=== PATIENT | female | born 1935 | race Caucasian/White ===

== ENCOUNTER 2018-05-21 14:43 | Day surgery (SDC) | payer MEDICARE ==
[~2018-05-21] VITALS: Ht 154.9 cm; Wt 56.9 kg
[~2018-05-21 14:43] MED LIST: METF10002 PO
[2018-05-21] MEDS ORDERED: LACTATED RINGERS 1,000 ML IV SCH (15:02)
[2018-05-21] MEDS ORDERED: METF500T17 PO (15:26)
[2018-05-21 15:27] VITALS: BP 199/81
[2018-05-21] MEDS ORDERED: SCOPOLAMINE PATCH, 1.5MG PATCH.TD72 TD ONE (15:30)
[2018-05-21] MEDS ORDERED: GABAPENTIN 300 MG CAPSULE PO ONE (15:30)
[2018-05-21] MEDS ORDERED: ACETAMINOPHEN 500 MG TABLET PO ONE (15:30)
[2018-05-21] MEDS ORDERED: PLEASE ENTER HEIGHT AND WEIGHT MC SCH (15:30)
[2018-05-21] MEDS ORDERED: MIDAZOLAM 1 MG/ML, 2ML ONE (15:34)
[2018-05-21] MEDS ORDERED: FENTANYL PF 100 MCG/2ML ONE ×2 (15:34→17:24)
[2018-05-21 16:05] LABS: BASOPHILS # (AUTO) 0.05 x10^3/uL (0-0.1); BASOPHILS % (AUTO) 1 % (0-1); EOSINOPHILS # (AUTO) 0.15 x10^3/uL (0-0.4); EOSINOPHILS % (AUTO) 2 % (1-7); LYMPHOCYTES # (AUTO) 1.93 x10^3/uL (1-3.4); LYMPHOCYTES % (AUTO) 29 % (22-44); MD NO; MEAN CORPUSCULAR HEMOGLOBIN 30.8 pg (27.0-34.8); MEAN CORPUSCULAR HGB CONC 33.3 g/dL (32.4-35.8); MEAN CORPUSCULAR VOLUME 92.4 fL (80-100); MEAN PLATELET VOLUME 7.6 fL (7.4-10.4); MONOCYTES # (AUTO) 0.44 x10^3/uL (0.2-0.8); MONOCYTES % (AUTO) 7 % (2-9); NEUTROPHILS # (AUTO) 4.06 x10^3/uL (1.8-6.8); NEUTROPHILS % (AUTO) 61 % (42-75); PLATELET COUNT 254 x10^3/uL (130-400); RED CELL DISTRIBUTION WIDTH 13.8 % (9.6-15.2)
[2018-05-21 16:10] LABS: ALBUMIN 3.3 g/dL (3.4-5.0); ANION GAP 7 mmol/L (5-15); CALCIUM 10.3 mg/dL (8.5-10.1); CHLORIDE 107 mmol/L (98-107)
[2018-05-21 16:14] LABS: ALANINE AMINOTRANSFERASE 18 U/L (12-78); ALKALINE PHOSPHATASE 95 U/L (45-117); BILIRUBIN,TOTAL 0.3 mg/dL (0.2-1.0); CREATININE 1.19 mg/dL (0.55-1.02); TOTAL PROTEIN 7.5 g/dL (6.4-8.2)
[2018-05-21] MEDS ORDERED: PROPOFOL 10 MG/ML, 20ML ONE (16:31)
[2018-05-21] MEDS ORDERED: LIDOCAINE 1%-EPI 1:100K, 30ML ONE (16:52)
[2018-05-21] MEDS ORDERED: ONDANSETRON 2MG/ML, 2ML IV PRN (17:00)
[2018-05-21] MEDS ORDERED: FENTANYL PF 100 MCG/2ML IV PRN (17:00)
[2018-05-21] MEDS ORDERED: hydrALAzine 20 MG/ML, 1ML IV PRN (17:00)
[2018-05-21] MEDS ORDERED: OXYcodone 5 MG/5 ML ORAL.SOL UDC PO PRN (17:00)
[2018-05-21] MEDS ORDERED: HYDROmorphone 1 MG/ML, 1ML IV PRN (17:00)
[2018-05-21] MEDS ORDERED: LABETALOL 5MG/ML, 20ML IV PRN (17:00)
[2018-05-21] MEDS ORDERED: ONDANSETRON ODT 8 MG PO PRN (17:00)
[2018-05-21] MEDS ORDERED: PROMETHAZINE 12.5 MG SUPP PR PRN (17:00)
[2018-05-21] MEDS ORDERED: OXYcodone 5 MG/5 ML ORAL.SOL UDC ONE (17:24)
== END 2018-05-21 23:30 | disposition home or self-care (01) ==
LOC: OR 14:43 → 4NOR 18:23 → OR 23:30
PROVIDERS: ATTEND Specialist
DX: C51.9 Malignant neoplasm of vulva, unspecified (principal); Z98.890 Other specified postprocedural states; Z79.899 Other long term (current) drug therapy; Z86.73 Personal history of transient ischemic attack (TIA), and cerebral infarction without residual deficits; I10 Essential (primary) hypertension; E11.9 Type 2 diabetes mellitus without complications; E78.5 Hyperlipidemia, unspecified; Z90.710 Acquired absence of both cervix and uterus
CPT/HCPCS: 36415; 56605; 71045; 80053; 85025; 88305; 93005; J2250; J2704; J3010; J3490; G0378

== ENCOUNTER → 2018-06-11 | Outpatient (CLI) | payer MEDICARE ==
[~2018-06-11] MED LIST changes: +METF500T17 PO
== END | disposition home or self-care (01) ==
LOC: ROC 07:59
PROVIDERS: ATTEND Radiology Radiation Oncology
DX: Z08 Encounter for follow-up examination after completed treatment for malignant neoplasm (principal); C51.9 Malignant neoplasm of vulva, unspecified; E11.9 Type 2 diabetes mellitus without complications; E78.00 Pure hypercholesterolemia, unspecified; I10 Essential (primary) hypertension; Z86.73 Personal history of transient ischemic attack (TIA), and cerebral infarction without residual deficits; Z90.710 Acquired absence of both cervix and uterus
CPT/HCPCS: 99214; G0463

== ENCOUNTER → 2018-06-20 | Outpatient (CLI) | payer MEDICARE ==
[~2018-06-20] MED LIST changes: +GADOBUTROL 7.5 MMOL/7.5 ML VIAL ONE
== END | disposition home or self-care (01) ==
LOC: RAD 11:58
PROVIDERS: ATTEND Radiology Radiation Oncology
DX: C51.0 Malignant neoplasm of labium majus (principal); C51.9 Malignant neoplasm of vulva, unspecified; K57.30 Diverticulosis of large intestine without perforation or abscess without bleeding
CPT/HCPCS: 72197; A9585

== ENCOUNTER → 2018-07-25 | Outpatient (CLI) | payer MEDICARE ==
[~2018-07-25] MED LIST changes: -GADOBUTROL 7.5 MMOL/7.5 ML VIAL ONE
== END | disposition home or self-care (01) ==
LOC: CFH 10:34
PROVIDERS: ATTEND Radiology Radiation Oncology
DX: I63.9 Cerebral infarction, unspecified (principal); R41.82 Altered mental status, unspecified; C51.0 Malignant neoplasm of labium majus; E11.9 Type 2 diabetes mellitus without complications; I10 Essential (primary) hypertension
CPT/HCPCS: 70551; 82565

== ENCOUNTER 2018-07-26 11:28 | Inpatient (IN) | payer MEDICARE ==
[~2018-07-26] VITALS: Ht 154.9 cm; Wt 59.2 kg
[2018-07-26 15:41] LABS: BASOPHILS # (AUTO) 0.03 x10^3/uL (0-0.1); BASOPHILS % (AUTO) 1 % (0-1); EOSINOPHILS # (AUTO) 0.23 x10^3/uL (0-0.4); EOSINOPHILS % (AUTO) 4 % (1-7); LYMPHOCYTES # (AUTO) 0.47 x10^3/uL (1-3.4); LYMPHOCYTES % (AUTO) 9 % (22-44); MD NO; MEAN CORPUSCULAR HGB CONC 33.5 g/dL (32.4-35.8); MEAN CORPUSCULAR VOLUME 92.8 fL (80-100); MEAN PLATELET VOLUME 6.5 fL (7.4-10.4); MONOCYTES # (AUTO) 0.52 x10^3/uL (0.2-0.8); MONOCYTES % (AUTO) 10 % (2-9); NEUTROPHILS # (AUTO) 3.94 x10^3/uL (1.8-6.8); NEUTROPHILS % (AUTO) 76 % (42-75); PLATELET COUNT 254 x10^3/uL (130-400); RED BLOOD COUNT 3.75 x10^6/uL (3.82-5.3); RED CELL DISTRIBUTION WIDTH 14.3 % (9.6-15.2)
[2018-07-26 15:44] LABS: ALBUMIN 3.1 g/dL (3.4-5.0); ANION GAP 5 mmol/L (5-15); CALCIUM 10.1 mg/dL (8.5-10.1); CHLORIDE 103 mmol/L (98-107)
[2018-07-26 15:48] LABS: ALANINE AMINOTRANSFERASE 22 U/L (12-78); ALKALINE PHOSPHATASE 88 U/L (45-117); BILIRUBIN,TOTAL 0.3 mg/dL (0.2-1.0); CREATININE 1.25 mg/dL (0.55-1.02); TOTAL PROTEIN 7.3 g/dL (6.4-8.2)
[2018-07-26 16:35] VITALS: BP 162/71
[2018-07-26] MEDS ORDERED: DOCUSATE 50 MG/5 ML, 10ML UDC PO PRN (17:30)
[2018-07-26] MEDS ORDERED: GADOBUTROL 7.5 MMOL/7.5 ML PFS ONE (17:42)
[2018-07-26] MEDS ORDERED: DIPHENHYDRAMINE 50 MG/ML, 1ML IVPush PRN (18:00)
[2018-07-26] MEDS ORDERED: methylPREDNISolone SOD SUCC 125 MG/2 ML IVPush PRN (18:00)
[2018-07-26] MEDS ORDERED: ACETAMINOPHEN 325 MG TABLET PO ONE (18:00)
[2018-07-26] MEDS ORDERED: OMNIPAQUE 350 MG/ML, 100ML BOTTLE ONE (18:43)
[2018-07-26 19:28] VITALS: BP 153/65
[2018-07-26] MEDS ORDERED: DO NOT GIVE XX PRN (21:00)
[2018-07-26] MEDS ORDERED: HEPARIN wt. based STROKE protocol IV PRN (21:00)
[2018-07-26] MEDS ORDERED: HEPARIN 25,000 UNITS/500ML PMX 500 ML IV PRN (21:30)
[2018-07-26] MEDS: SODIUM CHLORIDE 0.9% 500 ML IV SCH (22:30)
[2018-07-26] MEDS: INSULIN LISPRO 100 UNITS/ML, PEN SQ-INSULIN SCH (22:48)
[2018-07-26] MEDS: ATORVASTATIN 80 MG TABLET PO SCH (22:48)
[2018-07-27 01:31] VITALS: BP 158/78
[2018-07-27 02:19] LABS: CULTURE INDICATED? YES; MICROSCOPIC INDICATED
[2018-07-27] MEDS ORDERED: PHENAZOPYRIDINE 200 MG TABLET ONE (02:20)
[2018-07-27] MEDS: PHENAZOPYRIDINE 100 MG TABLET PO PRN ×2 (02:21→21:04)
[2018-07-27] MEDS: SODIUM CHLORIDE 0.9% 500 ML IV SCH (05:27)
[2018-07-27 05:55] LABS: BASOPHILS # (AUTO) 0.02 x10^3/uL (0-0.1); BASOPHILS % (AUTO) 1 % (0-1); EOSINOPHILS # (AUTO) 0.25 x10^3/uL (0-0.4); EOSINOPHILS % (AUTO) 6 % (1-7); LYMPHOCYTES # (AUTO) 0.39 x10^3/uL (1-3.4); LYMPHOCYTES % (AUTO) 9 % (22-44); MD NO; MEAN CORPUSCULAR HEMOGLOBIN 30.9 pg (27.0-34.8); MEAN CORPUSCULAR HGB CONC 33.3 g/dL (32.4-35.8); MEAN CORPUSCULAR VOLUME 92.7 fL (80-100); MEAN PLATELET VOLUME 6.4 fL (7.4-10.4); MONOCYTES # (AUTO) 0.49 x10^3/uL (0.2-0.8); MONOCYTES % (AUTO) 11 % (2-9); NEUTROPHILS # (AUTO) 3.31 x10^3/uL (1.8-6.8); NEUTROPHILS % (AUTO) 74 % (42-75); PLATELET COUNT 221 x10^3/uL (130-400); RED BLOOD COUNT 3.69 x10^6/uL (3.82-5.3)
[2018-07-27 06:09] LABS: CHLORIDE 107 mmol/L (98-107)
[2018-07-27 06:17] LABS: ANION GAP 6 mmol/L (5-15); CALCIUM 9.4 mg/dL (8.5-10.1); CHOL/HDL RATIO 4.4; CHOLESTEROL, TOTAL 171 mg/dL (140-239); CREATININE 1.01 mg/dL (0.55-1.02); HDL CHOL % 23 % (28-40); HDL CHOLESTEROL (DIRECT) 39 mg/dL (40-60); LDL CHOLESTEROL,CALCULATED 105 mg/dL (54-169); LDL/HDL RATIO 2.7 (0.5-3.0); TRIGLYCERIDES 134 mg/dL (50-200); VLDL CHOLESTEROL 27 mg/dL (0-25)
[2018-07-27 08:30] VITALS: BP 149/72
[2018-07-27] MEDS ORDERED: ASPIRIN 81 MG TABLET CHEW PO/NG SCH (09:00)
[2018-07-27] MEDS: INSULIN LISPRO 100 UNITS/ML, PEN SQ-INSULIN SCH ×4 (09:23→21:03)
[2018-07-27] MEDS: HYDROcodone/APAP 5/325 TABLET PO PRN ×2 (09:23→19:59)
[2018-07-27] MEDS: CEFTRIAXONE PMX 1GM/50ML 50 ML IV SCH (12:57)
--- NOTE | 2018-07-27 13:47 | NUR ---
Continue with a regular diet with thin liquids. Patient was educated on recommended diet and swallow precautions and strategies and placed on an orange sheet and placed on patient's whiteboard. Addendum: 07/27/18 at 1357 by JAVON AVILES Amended: Links added.
[2018-07-27 14:08] VITALS: BP 139/71
[2018-07-27 16:25] VITALS: BP 153/66
[2018-07-27 19:10] VITALS: BP 169/70
[2018-07-27] MEDS: ATORVASTATIN 80 MG TABLET PO SCH (19:59)
[2018-07-28 01:29] VITALS: BP 138/72
[2018-07-28] MEDS: HYDROcodone/APAP 5/325 TABLET PO PRN ×4 (01:36→21:12)
[2018-07-28] MEDS: ASPIRIN 81 MG TABLET EC PO SCH (05:55)
[2018-07-28 08:12] VITALS: BP 125/70
[2018-07-28] MEDS: INSULIN LISPRO 100 UNITS/ML, PEN SQ-INSULIN SCH ×4 (08:44→21:12)
[2018-07-28] MEDS: CEFTRIAXONE PMX 1GM/50ML 50 ML IV SCH (12:20)
[2018-07-28] MEDS: PHENAZOPYRIDINE 100 MG TABLET PO PRN ×2 (12:40→21:12)
[2018-07-28 15:25] VITALS: BP 157/70
[2018-07-28 18:55] VITALS: BP 135/80
[2018-07-28] MEDS: ATORVASTATIN 80 MG TABLET PO SCH (21:12)
[2018-07-29] MEDS: HYDROcodone/APAP 5/325 TABLET PO PRN ×4 (01:18→13:41)
[2018-07-29 03:01] VITALS: BP 138/74
[2018-07-29] MEDS: ASPIRIN 81 MG TABLET EC PO SCH (05:53)
[2018-07-29 09:15] VITALS: BP 147/71
[2018-07-29] MEDS: PHENAZOPYRIDINE 100 MG TABLET PO PRN ×3 (09:30→21:40)
[2018-07-29 12:05] VITALS: BP 154/74
[2018-07-29] MEDS: INSULIN LISPRO 100 UNITS/ML, PEN SQ-INSULIN SCH ×3 (12:47→20:58)
[2018-07-29] MEDS: CEFTRIAXONE PMX 1GM/50ML 50 ML IV SCH (12:50)
[2018-07-29 20:32] VITALS: BP 148/71
[2018-07-29] MEDS: ATORVASTATIN 80 MG TABLET PO SCH (20:57)
[2018-07-30 01:29] VITALS: BP 150/74
[2018-07-30 04:52] VITALS: BP 163/85
[2018-07-30] MEDS: ASPIRIN 81 MG TABLET EC PO SCH (04:56)
[2018-07-30 08:54] VITALS: BP 147/82
[2018-07-30] MEDS: INSULIN LISPRO 100 UNITS/ML, PEN SQ-INSULIN SCH ×4 (09:14→21:27)
[2018-07-30] MEDS: HYDROcodone/APAP 5/325 TABLET PO PRN (09:37)
[2018-07-30] MEDS: PHENAZOPYRIDINE 100 MG TABLET PO PRN (09:37)
[2018-07-30] MEDS: CEFTRIAXONE PMX 1GM/50ML 50 ML IV SCH (12:12)
[2018-07-30] MEDS ORDERED: LIDOCAINE/MPF 2%-EPI 1:200K, 20 ML ONE (13:07)
[2018-07-30] MEDS ORDERED: PAPAVERINE 30 MG/ML, 2ML ONE (13:07)
[2018-07-30] MEDS ORDERED: MIDAZOLAM 1 MG/ML, 2ML ONE (13:07)
[2018-07-30] MEDS ORDERED: PROTAMINE SULFATE 10 MG/ML, 5ML ONE (13:07)
[2018-07-30] MEDS ORDERED: FENTANYL PF 250 MCG/5ML ONE (13:07)
[2018-07-30] MEDS ORDERED: HEPARIN 1,000 UNITS/ML, 30ML ONE (13:07)
[2018-07-30] MEDS ORDERED: THROMBIN 20,000 UNIT VIAL TP ONE (13:08)
[2018-07-30] MEDS ORDERED: BACITRACIN 50,000 UNIT ONE (13:08)
[2018-07-30] MEDS ORDERED: LIDOCAINE 1%-EPI 1:100K, 30ML ONE (13:09)
[2018-07-30] MEDS ORDERED: REMIFENTANIL 2 MG ONE (13:18)
[2018-07-30] MEDS ORDERED: GLYCOPYRROLATE 0.2MG/1ML, 5ML ONE (14:07)
[2018-07-30] MEDS ORDERED: hydrALAzine 20 MG/ML, 1ML ONE ×2 (14:07→15:48)
[2018-07-30] MEDS ORDERED: NEOSTIGMINE 1 MG/ML, 10ML ONE (14:07)
[2018-07-30] MEDS ORDERED: ONDANSETRON 2MG/ML, 2ML ONE (14:58)
[2018-07-30] MEDS ORDERED: CEFAZOLIN 1,000 MG ONE (14:58)
[2018-07-30] MEDS ORDERED: LIDOCAINE-MPF 2% ,5ML ONE (14:58)
[2018-07-30] MEDS ORDERED: PROPOFOL 10 MG/ML, 20ML ONE (14:58)
[2018-07-30] MEDS ORDERED: OXYcodone 5 MG/5 ML ORAL.SOL UDC PO PRN (15:00)
[2018-07-30] MEDS ORDERED: HALOPERIDOL 5 MG/ML IV PRN (15:00)
[2018-07-30] MEDS ORDERED: PROMETHAZINE 25 MG/ML, 1ML IV PRN (15:00)
[2018-07-30] MEDS ORDERED: ACETAMINOPHEN 325 MG TABLET PO PRN (15:00)
[2018-07-30] MEDS ORDERED: HYDROmorphone 2 MG/ML, 1ML IVPush PRN (15:00)
[2018-07-30] MEDS ORDERED: hydrALAzine 20 MG/ML, 1ML IV PRN (15:00)
[2018-07-30] MEDS: FENTANYL PF 100 MCG/2ML IV PRN ×4 (15:45→16:25)
[2018-07-30] MEDS ORDERED: FENTANYL PF 100 MCG/2ML ONE (15:46)
[2018-07-30] MEDS ORDERED: ACETAMINOPHEN 650 MG/20.3 ML UDC ONE (15:46)
[2018-07-30] MEDS ORDERED: OXYcodone 5 MG/5 ML ORAL.SOL UDC ONE (15:46)
[2018-07-30] MEDS ORDERED: MEPERIDINE/PF 25MG/ML,1ML ONE (15:56)
[2018-07-30] MEDS: MEPERIDINE/PF 25MG/0.5ML IVPush PRN ×2 (16:00→16:10)
[2018-07-30] MEDS ORDERED: HYDROmorphone 1 MG/ML, 1ML ONE (16:29)
[2018-07-30 17:46] VITALS: BP 116/62
[2018-07-30] MEDS ORDERED: morphine SULFATE 10 MG/ML, 1ML IV PRN (18:00)
[2018-07-30 19:07] VITALS: BP 106/64
[2018-07-30] MEDS: SODIUM CHLORIDE FLUSH 10ML SYR IVF SCH (19:55)
[2018-07-30] MEDS: POTASSIUM CHLORIDE 20 MEQ in LACTATED RINGERS 1,000 ML IV SCH (19:57)
[2018-07-30] MEDS: ATORVASTATIN 80 MG TABLET PO SCH (21:17)
[2018-07-30] MEDS: CEFAZOLIN PMX 1GM/50ML 50 ML IVPB SCH (22:29)
[2018-07-31 01:54] VITALS: BP 101/60
[2018-07-31 01:57] VITALS: BP 147/63
[2018-07-31] MEDS: HYDROcodone/APAP 5/325 TABLET PO PRN ×3 (02:05→14:20)
[2018-07-31] MEDS: PHENAZOPYRIDINE 100 MG TABLET PO PRN ×2 (02:05→10:25)
[2018-07-31 05:39] LABS: BASOPHILS # (AUTO) 0.01 x10^3/uL (0-0.1); BASOPHILS % (AUTO) 0 % (0-1); EOSINOPHILS # (AUTO) 0.19 x10^3/uL (0-0.4); EOSINOPHILS % (AUTO) 3 % (1-7); LYMPHOCYTES # (AUTO) 0.34 x10^3/uL (1-3.4); LYMPHOCYTES % (AUTO) 6 % (22-44); MD NO; MEAN CORPUSCULAR HEMOGLOBIN 31.4 pg (27.0-34.8); MEAN CORPUSCULAR HGB CONC 33.6 g/dL (32.4-35.8); MEAN CORPUSCULAR VOLUME 93.6 fL (80-100); MEAN PLATELET VOLUME 6.9 fL (7.4-10.4); MONOCYTES # (AUTO) 0.82 x10^3/uL (0.2-0.8); MONOCYTES % (AUTO) 14 % (2-9); NEUTROPHILS # (AUTO) 4.38 x10^3/uL (1.8-6.8); NEUTROPHILS % (AUTO) 76 % (42-75); PLATELET COUNT 188 x10^3/uL (130-400); RED BLOOD COUNT 3.25 x10^6/uL (3.82-5.3); RED CELL DISTRIBUTION WIDTH 14.9 % (9.6-15.2)
[2018-07-31] MEDS ORDERED: ENOXAPARIN 40 MG/0.4 ML SQ SCH (06:00)
[2018-07-31] MEDS: CEFAZOLIN PMX 1GM/50ML 50 ML IVPB SCH (06:17)
[2018-07-31] MEDS: ASPIRIN 81 MG TABLET EC PO SCH (06:17)
[2018-07-31] MEDS: POTASSIUM CHLORIDE 20 MEQ in LACTATED RINGERS 1,000 ML IV SCH (06:22)
[2018-07-31 06:25] VITALS: BP 144/64
[2018-07-31] MEDS: INSULIN LISPRO 100 UNITS/ML, PEN SQ-INSULIN SCH ×2 (07:00→13:29)
[2018-07-31 07:51] VITALS: BP 118/60
[2018-07-31] MEDS ORDERED: metFORMIN 500 MG TABLET PO SCH (08:00)
[2018-07-31] MEDS: SODIUM CHLORIDE FLUSH 10ML SYR IVF SCH (09:00)
[2018-07-31] MEDS ORDERED: ASPI81TA45 PO (11:08)
[2018-07-31] MEDS ORDERED: ATOR-2 PO (11:08)
[2018-07-31] MEDS ORDERED: CEFI400C PO (11:08)
[2018-07-31] MEDS: CEFTRIAXONE PMX 1GM/50ML 50 ML IV SCH (13:30)
== END 2018-07-31 15:00 | disposition home or self-care (01) | DRG 37 ==
LOC: 3NW 14:42 → 4WST 07-27 15:21 → DCLOUNGE 07-31 14:39
PROVIDERS: ADMIT Internal Medicine; ATTEND Internal Medicine
PROC: 03CH0ZZ Extirpation of Matter from Right Common Carotid Artery, Open Approach (ICD-10-PCS; 2018-07-30)
PROC: 03CK0ZZ Extirpation of Matter from Right Internal Carotid Artery, Open Approach (ICD-10-PCS; 2018-07-30)
PROC: 03CM0ZZ Extirpation of Matter from Right External Carotid Artery, Open Approach (ICD-10-PCS; principal; 2018-07-30 14:30)
DX: I65.23 Occlusion and stenosis of bilateral carotid arteries (principal); I63.9 Cerebral infarction, unspecified; E87.1 Hypo-osmolality and hyponatremia; N39.0 Urinary tract infection, site not specified; D68.69 Other thrombophilia; N17.9 Acute kidney failure, unspecified; D64.9 Anemia, unspecified; I12.9 Hypertensive chronic kidney disease with stage 1 through stage 4 chronic kidney disease, or unspecified chronic kidney disease; F03.90 Unspecified dementia, unspecified severity, without behavioral disturbance, psychotic disturbance, mood disturbance, and anxiety; E11.65 Type 2 diabetes mellitus with hyperglycemia; B96.89 Other specified bacterial agents as the cause of diseases classified elsewhere; C51.9 Malignant neoplasm of vulva, unspecified; E11.22 Type 2 diabetes mellitus with diabetic chronic kidney disease; N18.2 Chronic kidney disease, stage 2 (mild); G93.89 Other specified disorders of brain; H91.90 Unspecified hearing loss, unspecified ear; Z79.82 Long term (current) use of aspirin; Z79.899 Other long term (current) drug therapy; Z86.73 Personal history of transient ischemic attack (TIA), and cerebral infarction without residual deficits; Z92.3 Personal history of irradiation; Z91.018 Allergy to other foods; Z91.041 Radiographic dye allergy status
CPT/HCPCS: 0399T; 36415; 70496; 70498; 70553; 77336; 77386; 80048; 80053; 80061; 81001; 82962; 85025; 85520; 87077; 87086; 87186; 93005; 93306; 93880; 95819; A9585; G0378; J0690; J0696; J1170; J1644; J2175; J2250; J2405; J2704; J2710; J2720; J3010; J3480; J3490; Q9967; J0360; J1200; J1815; J2270; J2440; J7040; J7120

== ENCOUNTER 2018-09-03 09:08 | Outpatient (CLI) | payer MEDICARE ==
[~2018-09-03 09:08] MED LIST changes: +ASPI81TA45 PO; +ATOR-2 PO; +CEFI400C PO
== END 2018-09-03 23:59 | disposition home or self-care (01) ==
LOC: ROC 09:08 → EDSTATUS 06-04 07:25
PROVIDERS: ATTEND Radiology Radiation Oncology
DX: Z08 Encounter for follow-up examination after completed treatment for malignant neoplasm (principal); C51.0 Malignant neoplasm of labium majus
CPT/HCPCS: 99212; G0463

== ENCOUNTER → 2018-09-18 | Outpatient (CLI) | payer MEDICARE | END | disposition home or self-care (01) | LOC: EDSTATUS 09-04 16:13 → ROC 11:10 | PROVIDERS: ATTEND Radiology Radiation Oncology | DX: C51.0 Malignant neoplasm of labium majus (principal) | CPT/HCPCS: 99212; G0463 ==

== ENCOUNTER → 2018-11-12 | Outpatient (CLI) | payer MEDICARE ==
[~2018-11-12] MED LIST changes: +HYDR12.517 PO; +MECL12.52 PO; +ONDA4TAB13 SL
== END | disposition home or self-care (01) ==
LOC: ROC 09:43
PROVIDERS: ATTEND Radiology Radiation Oncology
DX: C51.9 Malignant neoplasm of vulva, unspecified (principal); Z88.8 Allergy status to other drugs, medicaments and biological substances
CPT/HCPCS: 99212; G0463

== ENCOUNTER 2019-04-10 19:15 | Emergency (ER) | payer MEDICARE ==
[~2019-04-10] VITALS: Ht 154.9 cm; Wt 60.0 kg
[2019-04-10] MEDS ORDERED: SODIUM CHLORIDE 0.9% 1,000 ML IV ONE (19:34)
[2019-04-10] MEDS ORDERED: VALS40TA2 PO (19:57)
[2019-04-10] MEDS ORDERED: methylPREDNISolone SOD SUCC 125 MG/2 ML IVPush ONE (20:00)
[2019-04-10] MEDS ORDERED: DIPHENHYDRAMINE 50 MG/ML, 1ML IV ONE (20:00)
[2019-04-10] MEDS ORDERED: SODIUM CHLORIDE FLUSH 10ML SYR IVF ONE (20:00)
[2019-04-10] MEDS ORDERED: ONDANSETRON 2MG/ML, 2ML IVPush ONE (20:00)
[2019-04-10 20:02] LABS: BASOPHILS # (AUTO) 0.02 x10^3/uL (0-0.1); BASOPHILS % (AUTO) 0 % (0-1); EOSINOPHILS # (AUTO) 0.07 x10^3/uL (0-0.4); EOSINOPHILS % (AUTO) 1 % (1-7); LYMPHOCYTES # (AUTO) 0.24 x10^3/uL (1-3.4); LYMPHOCYTES % (AUTO) 5 % (22-44); MD NO; MEAN CORPUSCULAR HEMOGLOBIN 31.9 pg (27.0-34.8); MEAN CORPUSCULAR HGB CONC 32.5 g/dL (32.4-35.8); MEAN CORPUSCULAR VOLUME 97.9 fL (80-100); MONOCYTES # (AUTO) 0.36 x10^3/uL (0.2-0.8); MONOCYTES % (AUTO) 8 % (2-9); NEUTROPHILS # (AUTO) 4.15 x10^3/uL (1.8-6.8); NEUTROPHILS % (AUTO) 86 % (42-75); PLATELET COUNT 189 x10^3/uL (130-400); RED BLOOD COUNT 3.91 x10^6/uL (3.82-5.3); RED CELL DISTRIBUTION WIDTH 13.3 % (9.6-15.2)
[2019-04-10 20:11] LABS: INTERNATIONAL NORMALIZED RATIO 0.97 (0.93-1.1); PROTHROMBIN TIME 10.2 Seconds (9.6-11.5)
[2019-04-10 20:12] LABS: ALANINE AMINOTRANSFERASE 24 U/L (12-78); ALBUMIN 3.3 g/dL (3.4-5.0); ANION GAP 6 mmol/L (5-15); CALCIUM 10.1 mg/dL (8.5-10.1); CHLORIDE 104 mmol/L (98-107)
[2019-04-10 20:15] LABS: ALKALINE PHOSPHATASE 105 U/L (45-117); BILIRUBIN,TOTAL 0.4 mg/dL (0.2-1.0); TOTAL PROTEIN 7.8 g/dL (6.4-8.2)
[2019-04-10] MEDS ORDERED: DIPHENHYDRAMINE 50 MG/ML, 1ML ONE (20:25)
[2019-04-10] MEDS ORDERED: ONDANSETRON 2MG/ML, 2ML ONE (20:25)
[2019-04-10] MEDS ORDERED: methylPREDNISolone SOD SUCC 125 MG/2 ML ONE (20:26)
[2019-04-10] MEDS ORDERED: MORPHINE SULFATE 4 MG/ML, 1ML ONE ×2 (20:26→21:49)
[2019-04-10] MEDS: MORPHINE SULFATE 4 MG/ML, 1ML IVPush PRN ×2 (20:31→21:53)
[2019-04-10] MEDS ORDERED: OMNIPAQUE 350 MG/ML, 100ML BOTTLE ONE (20:54)
--- NOTE | 2019-04-10 21:05 | NUR ---
Pleasant patient, somewhat difficult of hearing, well nourished appearing presented to the ER with abdominal pain. RN to bedside after assessment by provider. Reviewed orders with patient including need for abdominal CT. Patient reports history of intolerance to previous CT's with abdominal swelling being the main symptom. RN educated on need for premedication and patient reported being informed by provider. RN started iv per protocol, and administered medications and fluids at the time product lead arrived. ecg technician to bedside to perform EKG but patient still shaking causing too much noise on ekg to acheive an accurate one. Patient transported out with nuclear test technician. Is aware that a urinalysis needs to be collected. Agreeable on return to room from CT.
[2019-04-10] MEDS ORDERED: LIDOCAINE 2%,20 ML JEL.PF.APP MM ONE ×2 (21:50→22:00)
--- NOTE | 2019-04-10 21:52 | NUR ---
QUICK CATH UA SPECIMEN TO BE OBTAINED. PT'S LABIA GROSSLY SWOLLEN BILAT, SLIGHT EXCORIATION ON INNER ASPECTS. PT C/O PAIN W/ LIGHT TOUCH TO AREA. DR DACOSTA CONSULTED.
--- NOTE | 2019-04-10 22:09 | NUR ---
URO-JELLY APPLIED TO LABIAL AREA. QUICK CATH URINE SPECIMEN OBTAINED. PT TOLERATED PROCEDURE WELL. SPECIMEN WILL BE WALKED TO LAB. SIDE RAILS UP X2, CALL LIGHT W/IN REACH. NO ADDITIONAL NEEDS AT THIS TIME.
--- NOTE | 2019-04-10 22:20 | NUR ---
RN to bedside, patient sleeping. Still connected to monitor. VSS on supplemental o2. Awaiting lab results for prognosis and updated plan of care.
[2019-04-10 22:21] LABS: MICROSCOPIC NOT IND
[2019-04-10 22:29] LABS: CULTURE INDICATED? NO
[2019-04-10 23:08] LABS: TROPONIN I < 0.015 ng/mL (0.000-0.045)
[2019-04-10 23:11] VITALS: BP 115/57
== END 2019-04-11 00:51 | disposition home or self-care (01) ==
LOC: ED 20:37
DX: I70.1 Atherosclerosis of renal artery (principal); R10.84 Generalized abdominal pain; I10 Essential (primary) hypertension; E11.9 Type 2 diabetes mellitus without complications; I25.2 Old myocardial infarction; Z86.73 Personal history of transient ischemic attack (TIA), and cerebral infarction without residual deficits; Z90.710 Acquired absence of both cervix and uterus; Z85.44 Personal history of malignant neoplasm of other female genital organs
CPT/HCPCS: 36415; 74174; 80053; 81003; 83605; 83690; 84484; 85025; 85610; 93005; 96361; 96374; 96375; 96376; 99284; J1200; J2270; J2405; J2930; J7030; Q9967

== ENCOUNTER 2019-04-12 08:37 | Observation (INO) | payer MEDICARE ==
[~2019-04-12] VITALS: Ht 157.5 cm; Wt 61.0 kg
[~2019-04-12 08:37] MED LIST changes: +VALS40TA2 PO
--- NOTE | 2019-04-12 09:21 | NUR ---
GI VIRUS X3 DAYS. RECENTLY EVALUATED, AND ASKED TO RETURN IF SXS ARE WORSENING. WORSENING TO DIARRHEA NOW. PT ON COMMODE AT BEDSIDE. PT HAS NOT TAKEN ANY MEDICATIONS FOR DIARRHEA.
[2019-04-12] MEDS ORDERED: LOPERAMIDE 2 MG CAPSULE ONE (09:41)
[2019-04-12] MEDS ORDERED: LOPERAMIDE 2 MG CAPSULE PO ONE (10:00)
--- NOTE | 2019-04-12 10:01 | NUR ---
PT UP TO COMMODE MULTIPLE TIMES W DIARRHEA. SAMPLE SENT. MEDICATED PER ORDERS.
[2019-04-12 10:27] LABS: CLOSTRIDIUM DIFFICILE ANTIGEN NEGATIVE; CLOSTRIDIUM DIFFICILE TOXIN NEGATIVE (Negative)
[2019-04-12 10:47] LABS: ALBUMIN 3.3 g/dL (3.4-5.0); ANION GAP 7 mmol/L (5-15); CALCIUM 9.6 mg/dL (8.5-10.1); CHLORIDE 103 mmol/L (98-107)
[2019-04-12 10:51] LABS: ALANINE AMINOTRANSFERASE 24 U/L (12-78); ALKALINE PHOSPHATASE 90 U/L (45-117); BILIRUBIN,TOTAL 0.6 mg/dL (0.2-1.0); CREATININE 1.69 mg/dL (0.55-1.02); MEAN CORPUSCULAR HEMOGLOBIN 31.3 pg (27.0-34.8); MEAN CORPUSCULAR HGB CONC 32.7 g/dL (32.4-35.8); MEAN CORPUSCULAR VOLUME 95.5 fL (80-100); MEAN PLATELET VOLUME 7.2 fL (7.4-10.4); PLATELET COUNT 232 x10^3/uL (130-400); RED BLOOD COUNT 3.76 x10^6/uL (3.82-5.3); RED CELL DISTRIBUTION WIDTH 12.9 % (9.6-15.2); TOTAL PROTEIN 7.4 g/dL (6.4-8.2)
[2019-04-12] MEDS ORDERED: SODIUM CHLORIDE FLUSH 10ML SYR IVF ONE (11:00)
[2019-04-12] MEDS ORDERED: SODIUM CHLORIDE 0.9% 1,000ML IVBOLUS ONE (11:00)
--- NOTE | 2019-04-12 11:07 | NUR ---
PT IS RESTING. NO DIARRHEA AFTER MEDICATION. VS STABLE. 2 L O2 APPLIED WHILE SLEEPING
[2019-04-12 11:40] LABS: MD YES
[2019-04-12 11:43] LABS: <PLATELET ESTIMATE> ADEQUATE; <PLT MORPHOLOGY> NORMAL PLT MORPH; <RBC MORPHOLOGY> NORMAL; BANDS%(MANUAL) 14 % (0-7); LYMPH#(MANUAL) 0.23 x10^3/uL (1-3.4); LYMPHS% (MANUAL) 4 % (22-44); MONOS#(MANUAL) 0.23 x10^3/uL (0.3-2.7); MONOS% (MANUAL) 4 % (2-9); SEG#(MANUAL) 4.45 x10^3/uL (1.8-6.8); SEGS% (MANUAL) 78 % (42-75)
--- NOTE | 2019-04-12 11:58 | NUR ---
REPORT TO RISSA
[2019-04-12] MEDS ORDERED: ACETAMINOPHEN 325 MG TABLET PO PRN (12:30)
[2019-04-12] MEDS ORDERED: METOCLOPRAMIDE 5 MG/ML, 2ML IVPush PRN (12:30)
[2019-04-12] MEDS ORDERED: LACTATED RINGERS 1,000 ML IV SCH (12:30)
--- NOTE | 2019-04-12 12:51 | NUR ---
REPORT TO ASAEL. PT HAD EPISODE OF DIARRHEA. PT CLEANED AND READY FOR TRANSFER
[2019-04-12] MEDS: SODIUM CHLORIDE 0.9% 1,000 ML IV SCH (14:04)
[2019-04-12] MEDS: HEPARIN 5,000 UNITS/ML, 1ML SQ SCH ×2 (14:04→20:57)
[2019-04-12 14:13] VITALS: BP 158/82
[2019-04-12] MEDS ORDERED: GLUCAGON 1 MG IM PRN (16:30)
[2019-04-12] MEDS ORDERED: DEXTROSE 50%, 50ML SYRINGE IVPush PRN (16:30)
[2019-04-12] MEDS ORDERED: DEXTROSE 4 GM TAB.CHEW PO PRN (16:30)
[2019-04-12] MEDS: INSULIN LISPRO 100 UNITS/ML, PEN SQ-INSULIN SCH ×2 (17:56→20:57)
[2019-04-12 19:34] VITALS: BP 127/74
[2019-04-12] MEDS: SODIUM CHLORIDE FLUSH 10ML SYR IVF SCH (20:56)
[2019-04-12] MEDS ORDERED: ATORVASTATIN 40 MG TABLET PO SCH (21:00)
[2019-04-13] MEDS: SODIUM CHLORIDE 0.9% 1,000 ML IV SCH ×2 (00:44→12:00)
[2019-04-13 02:00] VITALS: BP 117/69
[2019-04-13] MEDS: HEPARIN 5,000 UNITS/ML, 1ML SQ SCH ×2 (04:24→12:30)
[2019-04-13 05:17] LABS: BASOPHILS % (AUTO) 0 % (0-1); EOSINOPHILS # (AUTO) 0.06 x10^3/uL (0-0.4); EOSINOPHILS % (AUTO) 2 % (1-7); LYMPHOCYTES # (AUTO) 0.62 x10^3/uL (1-3.4); LYMPHOCYTES % (AUTO) 15 % (22-44); MD NO; MEAN CORPUSCULAR HEMOGLOBIN 31.8 pg (27.0-34.8); MEAN CORPUSCULAR HGB CONC 32.4 g/dL (32.4-35.8); MEAN CORPUSCULAR VOLUME 98.3 fL (80-100); MEAN PLATELET VOLUME 7.7 fL (7.4-10.4); MONOCYTES # (AUTO) 0.46 x10^3/uL (0.2-0.8); MONOCYTES % (AUTO) 11 % (2-9); NEUTROPHILS # (AUTO) 3.13 x10^3/uL (1.8-6.8); NEUTROPHILS % (AUTO) 73 % (42-75); PLATELET COUNT 199 x10^3/uL (130-400); RED CELL DISTRIBUTION WIDTH 13.3 % (9.6-15.2)
[2019-04-13 05:18] LABS: ANION GAP 3 mmol/L (5-15); CALCIUM 9.1 mg/dL (8.5-10.1); CHLORIDE 112 mmol/L (98-107)
[2019-04-13 05:20] LABS: CREATININE 1.23 mg/dL (0.55-1.02)
[2019-04-13] MEDS ORDERED: ASPIRIN 81 MG TABLET EC PO SCH (06:00)
[2019-04-13] MEDS: INSULIN LISPRO 100 UNITS/ML, PEN SQ-INSULIN SCH ×3 (07:00→16:00)
[2019-04-13 07:44] VITALS: BP 138/83
[2019-04-13] MEDS: SODIUM CHLORIDE FLUSH 10ML SYR IVF SCH (08:07)
[2019-04-13 08:08] VITALS: BP 149/66
[2019-04-13] MEDS ORDERED: HYDROCHLOROTHIAZIDE 12.5 MG CAPSULE PO SCH (09:00)
[2019-04-13 13:35] VITALS: BP 149/79
== END 2019-04-13 16:36 | disposition home or self-care (01) ==
LOC: ED 09:23 → INTOOBSV 11:28 → EDIP 11:28 → 4WST 13:08 → DCLOUNGE 04-13 16:30
PROVIDERS: ADMIT Family Medicine; ATTEND Family Medicine
DX: E87.2 Acidosis (principal); E86.0 Dehydration; R63.0 Anorexia; K52.9 Noninfective gastroenteritis and colitis, unspecified; I10 Essential (primary) hypertension; E11.9 Type 2 diabetes mellitus without complications; C51.9 Malignant neoplasm of vulva, unspecified; R32 Unspecified urinary incontinence; N17.9 Acute kidney failure, unspecified; Z79.82 Long term (current) use of aspirin; Z79.899 Other long term (current) drug therapy
CPT/HCPCS: 36415; 74022; 80048; 80053; 82962; 83605; 83735; 85025; 87324; 89055; 96360; 96361; 96372; 97165; 99284; G0378; J1644; J1815; J7030

== ENCOUNTER → 2019-05-15 | Outpatient (CLI) | payer MEDICARE | END | disposition home or self-care (01) | LOC: ROC 07:41 | PROVIDERS: ATTEND Radiology Radiation Oncology | DX: C51.0 Malignant neoplasm of labium majus (principal) | CPT/HCPCS: 99213; G0463 ==

== ENCOUNTER 2019-05-22 08:57 | Outpatient (CLI) | payer MEDICARE | END 2019-05-22 23:59 | disposition home or self-care (01) | LOC: ROC 08:57 | PROVIDERS: ATTEND Radiology Radiation Oncology | DX: Z08 Encounter for follow-up examination after completed treatment for malignant neoplasm (principal); C51.0 Malignant neoplasm of labium majus | CPT/HCPCS: 99213; G0463 ==

== ENCOUNTER 2019-06-03 18:49 | Emergency (ER) | payer MEDICARE ==
[~2019-06-03] VITALS: Ht 154.9 cm; Wt 59.4 kg
[2019-06-03 19:47] LABS: BASOPHILS # (AUTO) 0.03 x10^3/uL (0-0.1); BASOPHILS % (AUTO) 1 % (0-1); EOSINOPHILS % (AUTO) 2 % (1-7); LYMPHOCYTES # (AUTO) 0.62 x10^3/uL (1-3.4); LYMPHOCYTES % (AUTO) 12 % (22-44); MD NO; MEAN CORPUSCULAR HEMOGLOBIN 30.9 pg (27.0-34.8); MEAN CORPUSCULAR HGB CONC 32.7 g/dL (32.4-35.8); MEAN CORPUSCULAR VOLUME 94.4 fL (80-100); MEAN PLATELET VOLUME 7.5 fL (7.4-10.4); MONOCYTES # (AUTO) 0.39 x10^3/uL (0.2-0.8); MONOCYTES % (AUTO) 8 % (2-9); NEUTROPHILS # (AUTO) 3.97 x10^3/uL (1.8-6.8); NEUTROPHILS % (AUTO) 78 % (42-75); PLATELET COUNT 228 x10^3/uL (130-400); RED BLOOD COUNT 4.22 x10^6/uL (3.82-5.3); RED CELL DISTRIBUTION WIDTH 13.3 % (9.6-15.2)
[2019-06-03 19:48] LABS: HCT (SEDRATE) 39.8 % (34.6-47.8)
[2019-06-03 19:57] LABS: ALANINE AMINOTRANSFERASE 21 U/L (12-78); ALBUMIN 3.4 g/dL (3.4-5.0); ANION GAP 6 mmol/L (5-15); C-REACTIVE PROTEIN, QUANT 0.21 mg/dL (0.02-0.49); CALCIUM 10.1 mg/dL (8.5-10.1); CHLORIDE 104 mmol/L (98-107)
[2019-06-03 19:59] LABS: ALKALINE PHOSPHATASE 126 U/L (45-117); BILIRUBIN,TOTAL 0.3 mg/dL (0.2-1.0); TOTAL PROTEIN 7.6 g/dL (6.4-8.2)
[2019-06-03 21:12] VITALS: BP 169/91
--- NOTE | 2019-06-03 23:40 | NUR ---
not in lobby
--- NOTE | 2019-06-03 23:55 | NUR ---
not in lobby
--- NOTE | 2019-06-04 00:10 | NUR ---
not in lobby
== END 2019-06-04 00:11 | disposition left against medical advice (07) ==
LOC: ED 23:59
DX: M79.641 Pain in right hand (principal); R73.9 Hyperglycemia, unspecified
CPT/HCPCS: 36415; 80053; 85025; 85651; 86140; 99284

== ENCOUNTER 2019-08-23 16:31 | Emergency (ER) | payer MEDICARE ==
[~2019-08-23] VITALS: Ht 154.9 cm; Wt 56.9 kg
[~2019-08-23 16:31] MED LIST changes: -MECL12.52 PO; +MECL12.581 PO
--- NOTE | 2019-08-23 16:59 | NUR ---
daughter at bedside, states pt has been extremely thirsty and urinating more frequently.
[2019-08-23] MEDS ORDERED: SODIUM CHLORIDE 0.9% 1,000ML IVBOLUS ONE ×2 (17:30→19:00)
[2019-08-23] MEDS ORDERED: SODIUM CHLORIDE FLUSH 10ML SYR IVF ONE (17:30)
--- NOTE | 2019-08-23 17:50 | NUR ---
PT AMBULATORY TO BATHROOM, STEADY GAIT. EDUCATED ON CLEAN CATCH URINE.
[2019-08-23 17:55] LABS: PH, VENOUS 7.353 pH (7.320-7.420)
[2019-08-23 18:06] LABS: BASOPHILS # (AUTO) 0.01 x10^3/uL (0-0.1); BASOPHILS % (AUTO) 0 % (0-1); EOSINOPHILS # (AUTO) 0.07 x10^3/uL (0-0.4); EOSINOPHILS % (AUTO) 2 % (1-7); LYMPHOCYTES # (AUTO) 0.72 x10^3/uL (1-3.4); LYMPHOCYTES % (AUTO) 17 % (22-44); MD NO; MEAN CORPUSCULAR HEMOGLOBIN 30.6 pg (27.0-34.8); MEAN CORPUSCULAR HGB CONC 33.2 g/dL (32.4-35.8); MEAN CORPUSCULAR VOLUME 92.2 fL (80-100); MEAN PLATELET VOLUME 7.6 fL (7.4-10.4); MONOCYTES % (AUTO) 7 % (2-9); NEUTROPHILS # (AUTO) 3.11 x10^3/uL (1.8-6.8); NEUTROPHILS % (AUTO) 74 % (42-75); PLATELET COUNT 259 x10^3/uL (130-400); RED BLOOD COUNT 4.72 x10^6/uL (3.82-5.3); RED CELL DISTRIBUTION WIDTH 13.5 % (9.6-15.2)
[2019-08-23 18:08] LABS: ALBUMIN 3.4 g/dL (3.4-5.0); ANION GAP 8 mmol/L (5-15); CALCIUM 9.7 mg/dL (8.5-10.1); CHLORIDE 102 mmol/L (98-107); CREATININE 1.27 mg/dL (0.55-1.02)
[2019-08-23 18:17] LABS: MICROSCOPIC NOT IND
[2019-08-23 18:19] LABS: CULTURE INDICATED? NO
[2019-08-23 18:20] LABS: ACETONE, SERUM Negative (Negative)
--- NOTE | 2019-08-23 18:26 | NUR ---
PT LAYING IN BED, EYES CLOSED, RESPIRATIONS EVEN AND UNLABORED, NO SIGNS OF DISTRESS, WILL CONTINUE TO MONITOR.
--- NOTE | 2019-08-23 18:35 | NUR ---
FSBG TO BE RECHECKED AFTER 1L BOLUS FINISHES INFUSING.
--- NOTE | 2019-08-23 18:53 | NUR ---
REPORT GIVEN TO ATILIO BECK.
--- NOTE | 2019-08-23 19:07 | NUR ---
FSBS 289 AT THIS TIME.
--- NOTE | 2019-08-23 19:10 | NUR ---
ADDITIONAL LITER BOLUS STARTED.
--- NOTE | 2019-08-23 19:58 | NUR ---
FSBS DONE 260 AFTER 2ND LITER OF FLUID, PT UP TO RESTROOM WITH STEADY GAIT.
[2019-08-23 20:00] VITALS: BP 177/76
[2019-08-23] MEDS ORDERED: INSULIN SINGLE DOSE, ER ONE (20:07)
--- NOTE | 2019-08-23 20:09 | NUR ---
PT EDUCATED ON HOW TO USE HOME GLUCOMETER. PT STS IT WORKED ONCE BUT NOT SINCE. PT WAS ABLE TO HANDS ON DEMONSTRATE PROPER USE AND TECHNIQUE AT THIS TIME.
--- NOTE | 2019-08-23 20:15 | NUR ---
daughter called to arrange transport home from er. daughter sts son is on the way to get her at this time.
[2019-08-23] MEDS ORDERED: INSULIN REGULAR 100 UNITS/ML, 3ML VIAL SQ-INSULIN ONE (20:30)
== END 2019-08-23 20:48 | disposition home or self-care (01) ==
LOC: ED 18:12
DX: E11.65 Type 2 diabetes mellitus with hyperglycemia (principal); I10 Essential (primary) hypertension; I25.2 Old myocardial infarction; Z86.73 Personal history of transient ischemic attack (TIA), and cerebral infarction without residual deficits; Z90.710 Acquired absence of both cervix and uterus; Z85.44 Personal history of malignant neoplasm of other female genital organs
CPT/HCPCS: 36415; 80048; 81003; 82010; 82040; 82803; 82962; 85025; 96360; 96361; 96372; 99283; J1815; J7030

== ENCOUNTER 2019-12-02 13:02 | Observation (INO) | payer MEDICARE ==
[~2019-12-02] VITALS: Ht 154.9 cm; Wt 62.9 kg
[2019-12-02] MEDS ORDERED: GLIM2TAB7 PO (13:33)
--- NOTE | 2019-12-02 13:44 | NUR ---
tiffani [phone]
[2019-12-02] MEDS ORDERED: MORPHINE SULFATE 4 MG/ML, 1ML IVPush PRN (14:00)
[2019-12-02] MEDS ORDERED: ONDANSETRON 2MG/ML, 2ML ONE (14:34)
[2019-12-02] MEDS ORDERED: MORPHINE SULFATE 4 MG/ML, 1ML ONE (14:34)
[2019-12-02 14:50] LABS: BASOPHILS # (AUTO) 0.01 x10^3/uL (0-0.1); BASOPHILS % (AUTO) 0 % (0-1); EOSINOPHILS # (AUTO) 0.07 x10^3/uL (0-0.4); EOSINOPHILS % (AUTO) 1 % (1-7); LYMPHOCYTES # (AUTO) 0.51 x10^3/uL (1-3.4); LYMPHOCYTES % (AUTO) 11 % (22-44); MD NO; MEAN CORPUSCULAR HEMOGLOBIN 30.6 pg (27.0-34.8); MEAN PLATELET VOLUME 6.9 fL (7.4-10.4); MONOCYTES # (AUTO) 0.68 x10^3/uL (0.2-0.8); MONOCYTES % (AUTO) 14 % (2-9); NEUTROPHILS # (AUTO) 3.52 x10^3/uL (1.8-6.8); NEUTROPHILS % (AUTO) 74 % (42-75); PLATELET COUNT 237 x10^3/uL (130-400); RED BLOOD COUNT 3.88 x10^6/uL (3.82-5.3); RED CELL DISTRIBUTION WIDTH 13.7 % (9.6-15.2)
[2019-12-02 14:56] LABS: ALANINE AMINOTRANSFERASE 18 U/L (12-78); ALBUMIN 2.9 g/dL (3.4-5.0); ANION GAP 4 mmol/L (5-15); CALCIUM 9.6 mg/dL (8.5-10.1); CHLORIDE 110 mmol/L (98-107); CREATININE 1.28 mg/dL (0.55-1.02)
[2019-12-02 14:58] LABS: ALKALINE PHOSPHATASE 85 U/L (45-117); BILIRUBIN,TOTAL 0.2 mg/dL (0.2-1.0); TOTAL PROTEIN 6.9 g/dL (6.4-8.2)
[2019-12-02] MEDS ORDERED: SODIUM CHLORIDE 0.9% 1,000 ML IV ONE (15:00)
[2019-12-02] MEDS ORDERED: ONDANSETRON 2MG/ML, 2ML IVPush ONE (15:00)
[2019-12-02] MEDS ORDERED: SODIUM CHLORIDE FLUSH 10ML SYR IVF ONE (15:00)
--- NOTE | 2019-12-02 15:09 | NUR ---
TASK RN: PT UOB TO COMMODE WITH ASSISTANCE
[2019-12-02] MEDS ORDERED: DIPHENHYDRAMINE 50 MG/ML, 1ML ONE (15:18)
[2019-12-02] MEDS ORDERED: DIPHENHYDRAMINE 50 MG/ML, 1ML IVPush ONE (15:30)
[2019-12-02 15:57] LABS: MICROSCOPIC AUTO
--- NOTE | 2019-12-02 16:06 | NUR ---
PT TO RAD VIA SIDDHARTH
[2019-12-02] MEDS ORDERED: OMNIPAQUE 350 MG/ML, 100ML BOTTLE ONE (16:15)
[2019-12-02] MEDS ORDERED: CEFTRIAXONE PMX 1GM/50ML 50 ML ONE (17:14)
[2019-12-02] MEDS ORDERED: METRONIDAZOLE PMX 500MG/100ML 100 ML IV ONE (17:30)
[2019-12-02] MEDS ORDERED: CEFTRIAXONE PMX 1GM/50ML 50 ML IV ONE (17:30)
[2019-12-02] MEDS ORDERED: ONDANSETRON 2MG/ML, 2ML IVPush PRN (18:00)
[2019-12-02] MEDS: CEFTRIAXONE PMX 1GM/50ML 50 ML IV SCH (18:00)
[2019-12-02] MEDS ORDERED: LABETALOL 5MG/ML, 20ML IVPush PRN (18:00)
[2019-12-02] MEDS ORDERED: metroNIDAZOLE 50 MG/ML ORAL.SUSP PO SCH (18:00)
[2019-12-02] MEDS ORDERED: KETOROLAC 30 MG/1 ML IV PRN (18:00)
[2019-12-02] MEDS ORDERED: hydrALAzine 20 MG/ML, 1ML IVPush PRN (18:00)
[2019-12-02] MEDS ORDERED: METRONIDAZOLE PMX 500MG/100ML 100 ML ONE (18:01)
[2019-12-02 19:20] VITALS: BP 160/74
[2019-12-02] MEDS ORDERED: METRONIDAZOLE PMX 500MG/100ML 100 ML IVPB SCH (20:00)
[2019-12-02 22:15] LABS: CLOSTRIDIUM DIFFICILE ANTIGEN NEGATIVE; CLOSTRIDIUM DIFFICILE TOXIN NEGATIVE (Negative)
[2019-12-02] MEDS: HEPARIN 5,000 UNITS/ML, 1ML SQ SCH (23:48)
[2019-12-02] MEDS: INSULIN LISPRO 100 UNITS/ML, PEN SQ-INSULIN SCH (23:50)
[2019-12-03] MEDS ORDERED: GLUCAGON 1 MG IM PRN (00:30)
[2019-12-03] MEDS ORDERED: DEXTROSE 4 GM TAB.CHEW PO PRN (00:30)
[2019-12-03] MEDS ORDERED: DEXTROSE 50%, 50ML SYRINGE IVPush PRN (00:30)
[2019-12-03] MEDS: D5%-0.45% NACL 1,000 ML IV SCH ×3 (01:30→18:37)
[2019-12-03 02:17] VITALS: BP 138/73
[2019-12-03 06:10] LABS: BASOPHILS # (AUTO) 0.01 x10^3/uL (0-0.1); BASOPHILS % (AUTO) 0 % (0-1); EOSINOPHILS % (AUTO) 3 % (1-7); LYMPHOCYTES # (AUTO) 0.36 x10^3/uL (1-3.4); LYMPHOCYTES % (AUTO) 12 % (22-44); MD NO; MEAN CORPUSCULAR HEMOGLOBIN 31.3 pg (27.0-34.8); MEAN CORPUSCULAR HGB CONC 33.4 g/dL (32.4-35.8); MEAN PLATELET VOLUME 6.5 fL (7.4-10.4); MONOCYTES # (AUTO) 0.36 x10^3/uL (0.2-0.8); MONOCYTES % (AUTO) 12 % (2-9); NEUTROPHILS # (AUTO) 2.24 x10^3/uL (1.8-6.8); NEUTROPHILS % (AUTO) 73 % (42-75); PLATELET COUNT 210 x10^3/uL (130-400); RED BLOOD COUNT 3.41 x10^6/uL (3.82-5.3)
[2019-12-03 06:23] LABS: ANION GAP 3 mmol/L (5-15); CALCIUM 8.7 mg/dL (8.5-10.1); CHLORIDE 113 mmol/L (98-107); CREATININE 1.12 mg/dL (0.55-1.02)
[2019-12-03] MEDS: INSULIN LISPRO 100 UNITS/ML, PEN SQ-INSULIN SCH ×4 (07:00→21:26)
[2019-12-03 07:08] VITALS: BP 124/66
[2019-12-03] MEDS: HEPARIN 5,000 UNITS/ML, 1ML SQ SCH ×2 (08:22→18:33)
[2019-12-03] MEDS: SODIUM CHLORIDE FLUSH 10ML SYR IVF SCH ×2 (08:24→21:27)
[2019-12-03 13:04] VITALS: BP 135/70
[2019-12-03] MEDS: ACETAMINOPHEN 325 MG TABLET PO PRN (13:13)
[2019-12-03] MEDS: CEFTRIAXONE PMX 1GM/50ML 50 ML IV SCH (18:32)
[2019-12-03 19:02] VITALS: BP 119/56
[2019-12-04 00:56] VITALS: BP 150/69
[2019-12-04] MEDS: ACETAMINOPHEN 325 MG TABLET PO PRN ×2 (00:58→10:02)
[2019-12-04] MEDS: HEPARIN 5,000 UNITS/ML, 1ML SQ SCH ×2 (02:23→10:01)
[2019-12-04 06:00] LABS: CHLORIDE 110 mmol/L (98-107)
[2019-12-04] MEDS: D5%-0.45% NACL 1,000 ML IV SCH (06:08)
[2019-12-04 06:10] LABS: ALANINE AMINOTRANSFERASE 11 U/L (12-78); ALBUMIN 2.3 g/dL (3.4-5.0); ALKALINE PHOSPHATASE 68 U/L (45-117); ANION GAP 4 mmol/L (5-15); BILIRUBIN,TOTAL 0.2 mg/dL (0.2-1.0); CALCIUM 8.7 mg/dL (8.5-10.1); CREATININE 1.37 mg/dL (0.55-1.02); TOTAL PROTEIN 5.7 g/dL (6.4-8.2)
[2019-12-04] MEDS: INSULIN LISPRO 100 UNITS/ML, PEN SQ-INSULIN SCH ×2 (07:00→11:31)
[2019-12-04 08:15] VITALS: BP 140/71
[2019-12-04] MEDS ORDERED: LACTATED RINGERS 1,000 ML IV SCH (09:00)
[2019-12-04] MEDS: SODIUM CHLORIDE FLUSH 10ML SYR IVF SCH (10:02)
[2020-03-03] MEDS ORDERED: IBUP100T PO (12:07)
== END 2019-12-04 12:50 | disposition home or self-care (01) ==
LOC: ED 17:04 → INTOOBSV 17:05 → EDIP 17:05 → ED 17:37 → 3WST 18:15 → DCLOUNGE 12-04 12:42
PROVIDERS: ADMIT Family Medicine; ATTEND Family Medicine
DX: K52.9 Noninfective gastroenteritis and colitis, unspecified (principal); E86.0 Dehydration; N17.0 Acute kidney failure with tubular necrosis; E88.09 Other disorders of plasma-protein metabolism, not elsewhere classified; N39.0 Urinary tract infection, site not specified; R74.8 Abnormal levels of other serum enzymes; I12.9 Hypertensive chronic kidney disease with stage 1 through stage 4 chronic kidney disease, or unspecified chronic kidney disease; E11.22 Type 2 diabetes mellitus with diabetic chronic kidney disease; N18.9 Chronic kidney disease, unspecified; E46 Unspecified protein-calorie malnutrition; Z85.44 Personal history of malignant neoplasm of other female genital organs; I25.2 Old myocardial infarction; Z90.710 Acquired absence of both cervix and uterus; Z86.73 Personal history of transient ischemic attack (TIA), and cerebral infarction without residual deficits; Z79.899 Other long term (current) drug therapy
CPT/HCPCS: 36415; 74177; 80048; 80053; 81001; 82962; 83605; 83690; 85025; 87040; 87046; 87086; 87324; 87427; 89055; 96361; 96365; 96366; 96367; 96372; 96375; 97161; 97165; 99285; G0378; J0696; J1200; J1644; J1815; J1885; J2270; J2405; J7030; Q9967

== ENCOUNTER 2020-02-25 14:44 | Day surgery (SDC) | payer MEDICARE ==
[2020-02-24 12:28] LABS: BASOPHILS # (AUTO) 0.03 x10^3/uL (0-0.1); BASOPHILS % (AUTO) 0 % (0-1); EOSINOPHILS # (AUTO) 0.16 x10^3/uL (0-0.4); EOSINOPHILS % (AUTO) 2 % (1-7); LYMPHOCYTES # (AUTO) 0.72 x10^3/uL (1-3.4); LYMPHOCYTES % (AUTO) 10 % (22-44); MD NO; MEAN CORPUSCULAR HGB CONC 31.9 g/dL (32.4-35.8); MONOCYTES # (AUTO) 0.64 x10^3/uL (0.2-0.8); MONOCYTES % (AUTO) 9 % (2-9); NEUTROPHILS # (AUTO) 6.06 x10^3/uL (1.8-6.8); NEUTROPHILS % (AUTO) 80 % (42-75); PLATELET COUNT 261 x10^3/uL (130-400); RED BLOOD COUNT 3.68 x10^6/uL (3.82-5.3); RED CELL DISTRIBUTION WIDTH 14.8 % (9.6-15.2)
[2020-02-24 12:34] LABS: INTERNATIONAL NORMALIZED RATIO 1.03 (0.93-1.1); PROTHROMBIN TIME 10.6 Seconds (9.6-11.5)
[2020-02-24 13:00] LABS: ALANINE AMINOTRANSFERASE 15 U/L (12-78); ANION GAP 7 mmol/L (5-15); CALCIUM 10.5 mg/dL (8.5-10.1); CHLORIDE 107 mmol/L (98-107)
[2020-02-24 13:02] LABS: ALKALINE PHOSPHATASE 97 U/L (45-117); BILIRUBIN,TOTAL 0.4 mg/dL (0.2-1.0); TOTAL PROTEIN 7.2 g/dL (6.4-8.2)
[~2020-02-25] VITALS: Ht 154.9 cm; Wt 60.9 kg
[~2020-02-25 14:44] MED LIST changes: -ATOR20TA86 PO; -CLOP75TA PO; -OXYC-295 PO
[2020-02-25] MEDS ORDERED: ATOR20TA86 PO (15:16)
[2020-02-25] MEDS ORDERED: CLOP75TA PO (15:16)
[2020-02-25] MEDS ORDERED: OXYC-295 PO (15:16)
[2020-02-25 15:18] VITALS: BP 128/84
[2020-02-25] MEDS ORDERED: LACTATED RINGERS 1,000 ML IV SCH (15:38)
[2020-02-25] MEDS ORDERED: CHLORHEXIDINE 15 ML UDC ONE (15:40)
[2020-02-25] MEDS ORDERED: morphine SULFATE 10 MG/ML, 1ML IVPush PRN (16:00)
[2020-02-25] MEDS ORDERED: ACETAMINOPHEN 325 MG TABLET PO PRN (16:00)
[2020-02-25] MEDS ORDERED: CHLORHEXIDINE 15 ML UDC MM ONE (16:00)
[2020-02-25] MEDS ORDERED: FENTANYL PF 100 MCG/2ML IV PRN (16:00)
[2020-02-25] MEDS ORDERED: OXYcodone 5 MG/5 ML ORAL.SOL UDC PO PRN (16:00)
[2020-02-25] MEDS ORDERED: ONDANSETRON 2MG/ML, 2ML IVPush PRN (16:00)
[2020-02-25] MEDS ORDERED: EPINEPHRINE 1 MG/ML, 1ML ONE (16:06)
[2020-02-25] MEDS ORDERED: BUPIVACAINE/PF 0.25% ONE (16:06)
[2020-02-25] MEDS ORDERED: FENTANYL PF 100 MCG/2ML ONE ×2 (17:03→17:46)
[2020-02-25] MEDS ORDERED: ACETAMINOPHEN 325 MG TABLET ONE (18:32)
[2020-03-03] MEDS ORDERED: IBUP100T PO (12:07)
== END 2020-02-25 19:30 | disposition home or self-care (01) ==
LOC: OR 14:44
PROVIDERS: ATTEND Specialist
DX: C51.0 Malignant neoplasm of labium majus (principal); Z20.828 Contact with and (suspected) exposure to other viral communicable diseases; E11.9 Type 2 diabetes mellitus without complications; I10 Essential (primary) hypertension; E78.5 Hyperlipidemia, unspecified; Z88.3 Allergy status to other anti-infective agents; Z91.048 Other nonmedicinal substance allergy status; Z79.84 Long term (current) use of oral hypoglycemic drugs; Z79.899 Other long term (current) drug therapy; Z98.890 Other specified postprocedural states; Z86.73 Personal history of transient ischemic attack (TIA), and cerebral infarction without residual deficits; Z79.2 Long term (current) use of antibiotics; Z90.710 Acquired absence of both cervix and uterus; Z79.4 Long term (current) use of insulin
CPT/HCPCS: 36415; 56605; 71046; 80053; 82962; 85025; 85610; 85730; 87635; 88305; 93005; J0171; J3010; J3490; J7120

== ENCOUNTER → 2020-02-25 | Outpatient (CLI) | payer MEDICARE ==
[~2020-02-25] MED LIST changes: +ATOR20TA86 PO; +CLOP75TA PO; +GLIM2TAB7 PO; +OXYC-295 PO
== END | disposition home or self-care (01) ==
LOC: PETCFH 08:58
PROVIDERS: ATTEND Specialist
DX: C51.9 Malignant neoplasm of vulva, unspecified (principal); R91.1 Solitary pulmonary nodule; I25.10 Atherosclerotic heart disease of native coronary artery without angina pectoris; R23.4 Changes in skin texture
CPT/HCPCS: 78815; A9552

== ENCOUNTER → 2020-09-07 | Outpatient (CLI) | payer MEDICARE ==
[~2020-09-07] MED LIST changes: +ACET325T26 PO; +ATOR20TA86 PO; +CIPR500T87 PO; +CLOP75TA PO; +DOCU100C33 PO; +FAMO20TA7 PO; +HYDR-3241 PO; +IBUP100T2 PO; +INSU100I11 SQ-INSULIN; +MAGN400O7 PO; -MECL12.581 PO; +MECL12.590 PO; +METF500T PO; +OXYC-295 PO; +POLY17PO5 PO; +VENL75TA PO; +VERA120T8 PO
== END | disposition home or self-care (01) ==
LOC: CFH 08:39
PROVIDERS: ATTEND Specialist
DX: C51.9 Malignant neoplasm of vulva, unspecified (principal); R91.8 Other nonspecific abnormal finding of lung field; K57.30 Diverticulosis of large intestine without perforation or abscess without bleeding; I25.10 Atherosclerotic heart disease of native coronary artery without angina pectoris; N39.0 Urinary tract infection, site not specified; T81.30XD Disruption of wound, unspecified, subsequent encounter; G89.18 Other acute postprocedural pain; R30.0 Dysuria; M51.36 Other intervertebral disc degeneration, lumbar region
CPT/HCPCS: 71250; 74176

== ENCOUNTER 2021-01-27 13:03 | Outpatient (CLI) | payer MEDICARE ==
[~2021-01-27 13:03] MED LIST changes: -IBUP100T2 PO; +IBUP100T69 PO
== END 2021-01-27 23:59 | disposition home or self-care (01) ==
LOC: RAD 13:03
PROVIDERS: ATTEND Specialist
DX: C51.9 Malignant neoplasm of vulva, unspecified (principal); N39.0 Urinary tract infection, site not specified; N93.9 Abnormal uterine and vaginal bleeding, unspecified; K57.30 Diverticulosis of large intestine without perforation or abscess without bleeding; M85.88 Other specified disorders of bone density and structure, other site; M51.36 Other intervertebral disc degeneration, lumbar region; M41.86 Other forms of scoliosis, lumbar region; I70.0 Atherosclerosis of aorta; R91.8 Other nonspecific abnormal finding of lung field; J98.4 Other disorders of lung; R30.0 Dysuria; G89.18 Other acute postprocedural pain; T81.30XD Disruption of wound, unspecified, subsequent encounter
CPT/HCPCS: 71250; 74176

== ENCOUNTER 2021-02-04 14:13 | Day surgery (SDC) | payer MEDICARE ==
[~2021-02-04] VITALS: Ht 152.4 cm; Wt 47.9 kg
[~2021-02-04 14:13] MED LIST changes: +VERA120T27 PO; -VERA120T8 PO
[2021-02-04] MEDS ORDERED: CHLORHEXIDINE 15 ML UDC PO ONE (15:00)
[2021-02-04] MEDS ORDERED: LACTATED RINGERS 1,000 ML IV SCH (15:00)
[2021-02-04 15:01] VITALS: BP 159/72
[2021-02-04] MEDS ORDERED: FENTANYL PF 250 MCG/5ML ONE (15:11)
[2021-02-04] MEDS ORDERED: CHLORHEXIDINE 15 ML UDC ONE (15:12)
[2021-02-04] MEDS ORDERED: DEXAMETHASONE 4 MG/ML, 1ML ONE (15:16)
[2021-02-04] MEDS ORDERED: CEFAZOLIN 1,000 MG ONE (15:16)
[2021-02-04] MEDS ORDERED: PROPOFOL 10 MG/ML, 20ML ONE (15:16)
[2021-02-04] MEDS ORDERED: ONDANSETRON 2MG/ML, 2ML ONE (15:16)
[2021-02-04] MEDS ORDERED: ROCURONIUM 10MG/ML,5ML ONE (15:16)
[2021-02-04] MEDS ORDERED: GLYCOPYRROLATE 0.2MG/1ML, 5ML ONE (15:16)
[2021-02-04] MEDS ORDERED: NEOSTIGMINE 1 MG/ML, 10ML ONE (15:16)
[2021-02-04] MEDS ORDERED: METFORMIN PO (15:26)
[2021-02-04] MEDS ORDERED: HYDR-3248 PO (15:26)
[2021-02-04 15:40] LABS: BASOPHILS % (AUTO) 1 % (0-1); EOSINOPHILS % (AUTO) 3 % (1-7); LYMPHOCYTES % (AUTO) 14 % (22-44); MEAN CORPUSCULAR HEMOGLOBIN 30.2 pg (27.0-34.8); MEAN CORPUSCULAR HGB CONC 33.4 g/dL (32.4-35.8); MEAN PLATELET VOLUME 6.7 fL (7.4-10.4); MONOCYTES % (AUTO) 7 % (2-9); NEUTROPHILS % (AUTO) 76 % (42-75); PLATELET COUNT 311 x10^3/uL (130-400); RED BLOOD COUNT 4.13 x10^6/uL (3.82-5.3); RED CELL DISTRIBUTION WIDTH 14.4 % (9.6-15.2)
[2021-02-04 15:42] LABS: ALANINE AMINOTRANSFERASE 14 U/L (12-78); ALBUMIN 3.3 g/dL (3.4-5.0); ANION GAP 7 mmol/L (5-15); CALCIUM 10.7 mg/dL (8.5-10.1); CHLORIDE 104 mmol/L (98-107); CREATININE 1.05 mg/dL (0.55-1.02); INTERNATIONAL NORMALIZED RATIO 0.96 (0.93-1.1); PROTHROMBIN TIME 10.3 Seconds (9.6-11.5)
[2021-02-04 15:45] LABS: ALKALINE PHOSPHATASE 111 U/L (45-117); BILIRUBIN,TOTAL 0.5 mg/dL (0.2-1.0)
[2021-02-04] MEDS ORDERED: EPHEDRINE 50 MG/ML, 1ML IVPush PRN (17:00)
[2021-02-04] MEDS ORDERED: ACETAMINOPHEN 325 MG TABLET PO PRN (17:00)
[2021-02-04] MEDS ORDERED: ONDANSETRON 2MG/ML, 2ML IVPush PRN (17:00)
[2021-02-04] MEDS ORDERED: METHOCARBAMOL 1,000 MG in DEXTROSE 5% 100 ML IV PRN (17:00)
[2021-02-04] MEDS ORDERED: OXYcodone 5 MG/5 ML ORAL.SOL UDC PO PRN (17:00)
[2021-02-04] MEDS ORDERED: FENTANYL PF 100 MCG/2ML IV PRN (17:00)
[2021-02-04] MEDS ORDERED: HYDROmorphone 1 MG/ML, 1ML INJ IVPush PRN (17:00)
[2021-02-04] MEDS ORDERED: LABETALOL 5MG/ML, 20ML IV PRN (17:00)
[2021-02-04] MEDS ORDERED: LORazepam 2 MG/ML, 1ML IVPush PRN (17:00)
[2021-02-04] MEDS ORDERED: hydrALAzine 20 MG/ML, 1ML IV PRN (17:00)
[2021-02-04] MEDS ORDERED: PROMETHAZINE 25 MG/ML, 1ML IVPush PRN (17:00)
== END 2021-02-04 18:20 | disposition home or self-care (01) ==
LOC: OR 14:13
PROVIDERS: ATTEND Specialist
DX: N35.92 Unspecified urethral stricture, female (principal); R32 Unspecified urinary incontinence; I10 Essential (primary) hypertension; E11.9 Type 2 diabetes mellitus without complications; E78.5 Hyperlipidemia, unspecified; Z20.822 Contact with and (suspected) exposure to COVID-19; Z79.01 Long term (current) use of anticoagulants; Z79.84 Long term (current) use of oral hypoglycemic drugs; Z79.891 Long term (current) use of opiate analgesic; Z79.899 Other long term (current) drug therapy; Z85.44 Personal history of malignant neoplasm of other female genital organs; Z90.79 Acquired absence of other genital organ(s); Z91.041 Radiographic dye allergy status; Z92.3 Personal history of irradiation
CPT/HCPCS: 51102; 80053; 82962; 85025; 85610; 85730; 87635; 93005; J0690; J1100; J2405; J2704; J2710; J3010; J7120